=== PATIENT | female | born 1950 | race Caucasian/White ===

== ENCOUNTER 2018-02-06 03:08 | Emergency (ER) | payer MEDICARE, OTHER ==
[2018-02-06 03:42] LABS: #Basophils 0.1 thou/uL (0.0-0.2); #Eosinphils 0.3 thou/uL (0.0-0.7); #Lymphocytes 4.1 thou/uL (1.20-3.40); #Monocytes 0.8 thou/uL (0.11-0.59); #Neutrophils 7.5 thou/uL (1.40-6.50); %Basophils 0.8 % (0.0-1.0); %Eosinophils 2.1 % (0.0-10.0); %Lymphocytes 32.3 % (21.0-51.0); %Monocytes 6.1 % (0.0-10.0); %Neutrophils 58.7 % (42.0-75.0); Hemoglobin 14.8 g/dL (12.0-16.0); Mean Corpuscular HGB CONC 34.1 g/dL (32.0-36.0); Mean Corpuscular Hemoglobin 32.3 pg (27.0-31.0); Mean Corpuscular Volume 94.6 fl (81.0-99.0); Mean Platelet Volume 7.2 fL (7.4-10.4); Platelet Count 308 thou/uL (130-400); RBC Distribution Width 12.6 % (11.5-14.5); Red Blood Cell (RBC) Count 4.57 mill/uL (4.20-5.40); White Blood Cell (WBC) Count 12.7 thou/uL (4.8-10.8)
[2018-02-06 03:58] LABS: ALT (SGPT) 7 U/L (8-55); AST (SGOT) 14 U/L (5-34); Albumin 4.4 g/dL (3.4-4.8); Alkaline Phosphatase 92 U/L (40-150); Anion Gap 13 mmol/L (10-20); BUN (Urea Nitrogen) 28 mg/dL (9.8-20.1); Bilirubin, Total 0.6 mg/dL (0.2-1.2); Calc. Creatinine Clearance 0 mL/min (70-130); Calcium 9.7 mg/dL (7.8-10.44); Carbon Dioxide 25 mmol/L (23-31); Chloride 101 mmol/L (98-107); Estimated GFR-MDRD 56; Globulin 3.4 g/dL (2.4-3.5); Glucose 123 mg/dL (80-115); Protein, Total 7.8 g/dL (6.0-8.3); Sodium 136 mmol/L (136-145)
[2018-02-06 04:03] LABS: CKMB 1.7 ng/mL (0-6.6); Troponin I 0.011 ng/mL (< 0.028)
[2018-02-06] MEDS ORDERED: Potassium Chloride 20 MEQ TAB ONE (04:12)
--- NOTE | 2018-02-06 08:03 | RAD ---
PORTABLE CHEST ONE VIEW: Date: 02-06-18 Time: 2:53 a.m. History: Chest pain. FINDINGS: The heart size is borderline. There is elevation of the right hemidiaphragm. No focal areas of consol idation, pneumothorax, or pleural effusions are seen. There is no evidence of yessica pulmonary edema. IMPRESSION: No acute process. POS: SHEYLA
== END 2018-02-06 05:14 | disposition home or self-care (01) ==
LOC: ERS 03:08
DX: E87.6 Hypokalemia (principal); R00.2 Palpitations; I10 Essential (primary) hypertension; Z79.899 Other long term (current) drug therapy
CPT/HCPCS: 36415; 71045; 80053; 82553; 83735; 84443; 84484; 85025; 93005; 96360

== ENCOUNTER 2019-12-26 09:09 | Outpatient (CLI) | payer MEDICARE ==
[2019-12-26 13:24] LABS: Bilirubin Negative (Negative); Blood, Urine Negative (Negative); Clarity Clear (Clear); Glucose, Urine (Dipstick) Normal (Negative); Leukocyte 25 Leu/uL (Negative); Nitrite Negative (Negative); Protein, Urine (Dipstick) Negative (Neg-Trace); RBC/HPF 0-3 HPF (0-3); Urobilinogen Normal mg/dL (Less than 2); WBC/HPF 0-3 HPF (0-3)
[2019-12-26 13:37] LABS: Bacteria/HPF 1+ HPF (None Seen)
== END 2019-12-26 09:10 | disposition home or self-care (01) ==
LOC: LABBT 09:09
PROVIDERS: ATTEND Orthopaedic Surgery
DX: Z01.812 Encounter for preprocedural laboratory examination (principal); M16.11 Unilateral primary osteoarthritis, right hip
CPT/HCPCS: 81001; 87081; 87086

== ENCOUNTER 2019-12-26 09:15 | Inpatient (IN) | payer MEDICARE ==
[2019-12-26 09:37] VITALS: BMI 35.5
[2020-01-01 15:08] LABS: #Basophils 0.1 thou/uL (0.0-0.2); #Eosinphils 0.3 thou/uL (0.0-0.7); #Lymphocytes 2.7 thou/uL (1.20-3.40); #Monocytes 0.7 thou/uL (0.11-0.59); #Neutrophils 7.8 thou/uL (1.40-6.50); %Basophils 0.6 % (0.0-1.0); %Eosinophils 2.2 % (0.0-10.0); %Lymphocytes 23.6 % (21.0-51.0); %Monocytes 6.2 % (0.0-10.0); %Neutrophils 67.5 % (42.0-75.0); Hemoglobin 12.5 g/dL (12.0-16.0); Mean Corpuscular HGB CONC 33.9 g/dL (32.0-36.0); Mean Corpuscular Hemoglobin 32.7 pg (27.0-31.0); Mean Corpuscular Volume 96.5 fL (78.0-98.0); Mean Platelet Volume 8.2 fL (7.4-10.4); Platelet Count 312 thou/uL (130-400); RBC Distribution Width 12.3 % (11.5-14.5); White Blood Cell (WBC) Count 11.6 thou/uL (4.8-10.8)
[2020-01-01 15:15] LABS: Prothrombin Time 12.7 SEC (12.0-14.7)
[2020-01-01 15:26] LABS: Anion Gap 14 mmol/L (10-20); BUN (Urea Nitrogen) 25 mg/dL (9.8-20.1); Calc. Creatinine Clearance 0 mL/min (70-130); Calcium 9.6 mg/dL (7.8-10.44); Carbon Dioxide 26 mmol/L (23-31); Chloride 102 mmol/L (98-107); Estimated GFR-MDRD 44; Glucose 99 mg/dL (80-115); Potassium 3.5 mmol/L (3.5-5.1); Sodium 138 mmol/L (136-145)
--- NOTE | 2020-02-27 10:39 | HP ---
HISTORY OF PRESENT ILLNESS: The patient is a 69-year-old female with progressive problems with her right hip over the past year. She has had progressive hip and groin pain which radiates towards her knee, which is worse with ambulation and has persisted despite rest, restriction of activities, anti-inflammatory medications, lifestyle adjustments, and the use of hydrocodone to relieve the pain. The pain is unrelated for day-to-day activities including walking, getting dressed, and sleeping. PAST MEDICAL HISTORY: The patient does have history of degenerative arthritis of the lumbar spine, history for hypertension, and headaches. CURRENT MEDICATIONS: Include losartan, etodolac, amlodipine, bisoprolol, hydrochlorothiazide. ALLERGIES: SHE IS ALLERGIC TO SULFA. FAMILY HISTORY: Otherwise unremarkable. SOCIAL HISTORY: Otherwise unremarkable. REVIEW OF SYSTEMS: Otherwise unremarkable. PHYSICAL EXAMINATION: GENERAL: Reveals a healthy, heavy-set female. HEENT: Unremarkable. NECK: Supple. CHEST: Clear. HEART: Regular rate and rhythm. ABDOMEN: Soft, nontender. PELVIC: Deferred. RECTAL: Deferred. BREAST: Deferred.. EXTREMITIES: Pertinent findings of her right hip, right leg is 1 cm short. There is tenderness in the anterior and posterior hip. There is decreased range of motion and crepitus with range of motion. There is groin pain with internal rotation. There is a right antalgic gait and right Trendelenburg gait. NEUROVASCULAR EXAM: Intact. Pulses are 1+. Straight leg raising is negative. DIAGNOSTIC STUDIES: X-rays of the right hip reveal severe degenerative arthritis with [id number] collapse with progression from previous x-rays. IMPRESSION: 1. Degenerative joint disease, right hip. 2. History of hypertension. 3. Lumbar spondylosis. PLAN: Right total hip replacement. The nature of the surgery, length of recovery, and potential complications such as infection, loss of motion, incomplete relief, neurovascular injury, thromboembolic phenomena, leg-length discrepancy, possible transfusion, and need for revision have been discussed in detail. Job ID: [id number]
[2020-02-27 18:37] LABS: SARS-CoV-2 MS2 Positive; SARS-CoV-2 N Gene Negative; SARS-CoV-2 S Gene Negative; SARS-CoV-2 orf1ab Negative
[2020-03-02] MEDS ORDERED: PHENYLEPHRINE-NS 100 MCG/ML 10 ML SYRINGE ONE (10:01)
[2020-03-02] MEDS ORDERED: Ondansetron PF 4 MG/2 ML Vial ONE (10:01)
[2020-03-02] MEDS ORDERED: Rocuronium Bromide 10 MG/ML (10ML VIAL) ONE (10:01)
[2020-03-02] MEDS ORDERED: Glycopyrrolate 0.2 MG/ML 5 ML SYRINGE ONE (10:01)
[2020-03-02] MEDS ORDERED: Lidocaine 1.5% w/Epi 1:200K 30 ML VIAL (Epid Use) ONE (10:01)
[2020-03-02] MEDS ORDERED: EPHEDRINE 25 MG/5 ML SYRINGE ONE ×2 (10:01)
[2020-03-02] MEDS ORDERED: Lidocaine 1% PF 5 ML VIAL ONE (10:01)
[2020-03-02] MEDS ORDERED: PROPOFOL 200 MG/20 ML VIAL ONE (10:01)
[2020-03-02] MEDS ORDERED: Midazolam HCl 2 mg/2 ml Vial ONE (10:18)
[2020-03-02] MEDS ORDERED: Fentanyl 100 MCG/2 ML VIAL ONE ×3 (10:18→14:59)
[2020-03-02] MEDS ORDERED: Vancomycin 1.5 GRAM/300 ML BAG 1.5 GM/300 ML BAG ONE (10:34)
[2020-03-02] MEDS ORDERED: Tranexamic Acid 1,000 MG/10 ML VIAL ONE ×2 (10:34→14:55)
[2020-03-02] MEDS ORDERED: Sodium Chloride 0.9% 100 ML ONE (10:35)
[2020-03-02] MEDS ORDERED: diphenhydrAMINE 50 MG/ML VIAL IVP PRN (11:15)
[2020-03-02] MEDS ORDERED: Ondansetron PF 4 MG/2 ML Vial IVP PRN ×2 (11:15→14:43)
[2020-03-02] MEDS ORDERED: traMADol HCl 50 MG TAB PO PRN ×3 (11:15→14:43)
[2020-03-02] MEDS ORDERED: Bupivacaine 0.25% 10 ML VIAL EPIDURAL PRN (11:15)
[2020-03-02] MEDS ORDERED: Promethazine HCl 25 MG/ML VIAL IM PRN ×2 (11:15→14:41)
[2020-03-02] MEDS ORDERED: HYDROcodone/Acetaminophen 5/325 mg Tablet PO PRN (11:15)
[2020-03-02] MEDS ORDERED: Naloxone HCl 0.4 mg/ml Vial IV PRN (11:15)
[2020-03-02] MEDS ORDERED: Zolpidem Tartrate 5 MG TAB PO PRN ×2 (11:15→14:43)
[2020-03-02] MEDS ORDERED: Ketorolac Tromethamine 30 MG/ML VIAL IVP PRN (11:15)
[2020-03-02] MEDS ORDERED: Naloxone HCl 0.4 mg/ml Vial IVP PRN (11:15)
[2020-03-02] MEDS ORDERED: Hydrocerin (Eucerin) Cream 120 gm Jar TOP PRN (11:15)
[2020-03-02] MEDS ORDERED: diphenhydrAMINE 50 MG/ML VIAL IM PRN (11:15)
[2020-03-02] MEDS ORDERED: diphenhydrAMINE 25 MG CAP PO PRN ×2 (11:15→14:43)
[2020-03-02] MEDS ORDERED: Promethazine HCl 25 MG SUPP PR PRN (11:15)
[2020-03-02] MEDS ORDERED: Acetaminophen 325 MG TAB PO PRN ×2 (11:15→14:43)
[2020-03-02] MEDS ORDERED: Bupivacaine/Epinephrine 0.25% 30 ML VIAL ONE (12:26)
[2020-03-02] MEDS ORDERED: Sodium Chloride 0.9% 10 ML ONE (13:07)
[2020-03-02] MEDS ORDERED: Tranexamic Acid 1,000 MG in Sodium Chloride 0.9% 100 ML IVPB SCH ×2 (14:30→14:43)
[2020-03-02] MEDS ORDERED: Ondansetron HCl/PF 4 MG/2 ML Vial IVP PRN (14:41)
[2020-03-02] MEDS ORDERED: Promethazine HCl 25 MG/ML VIAL SLOW IVP PRN ×2 (14:41→14:43)
[2020-03-02] MEDS ORDERED: HYDROmorphone 2 MG/ML VIAL SLOW IVP PRN (14:41)
[2020-03-02] MEDS ORDERED: Fentanyl 100 MCG/2 ML VIAL SLOW IVP PRN ×2 (14:43)
[2020-03-02] MEDS ORDERED: Ketorolac Tromethamine 30 MG/ML VIAL IVP SCH (14:43)
[2020-03-02] MEDS ORDERED: HYDROcodone/Acetaminophen 10/325 mg Tablet PO PRN ×2 (14:43)
--- NOTE | 2020-03-02 15:11 | RAD ---
Right hip 2 views HISTORY: Hip replacement. FINDINGS: Metallic prosthesis is in place. No trino-hardware lucency. Small amount of soft tissue gas. IMPRESSION : Right hip prosthesis is in good radiographic position.
--- NOTE | 2020-03-02 17:43 | PDOC.HOSPP ---
- Subjective Encounter Date: 03/02/20 Encounter Time: 17:43 Subjective: Patient seen and examined for med mngt. No CP/SOB/Palpitations. No new complaints. - Objective Vital Signs & Weight: Vital Signs (12 hours) Temp Pulse Resp BP Pulse Ox 03/02/20 16:00 96.8 F L 53 L 16 104/60 99 Weight Weight 220 lb Result Diagrams: 03/03/20 05:58 03/03/20 05:58 EKG Reviewed by me: Yes (SR) Hospitalist ROS - Review of Systems Respiratory: denies: cough, dry, shortness of breath, hemoptysis, SOB with excertion, pleuritic pain, sputum, wheezing, other Cardiovascular: denies: chest pain, palpitations, orthopnea, paroxysmal noc. dyspnea, edema, light headedness, other - Exam General Appearance: NAD Neck: supple, no JVD Heart: RRR, no gallops Respiratory: no wheezes, no ronchi Gastrointestinal: non-tender, non-distended Extremities: no cyanosis, no clubbing Hosp A/P - Plan DVT proph w/SCDs HTN Obesity BMI 35.5 DJD CKD 3 PLAN: Cont Amlodipine Cont Bisoprolol Cont Losartan Cont HCTZ Cont Potassium supp AM labs Cont PT/OT Full code. DPOA - son
[2020-03-02] MEDS ORDERED: Potassium Chloride 10 MEQ TAB PO SCH (18:00)
[2020-03-02] MEDS: Sodium Chloride 0.9% 1,000 ML IV SCH (18:30)
[2020-03-02] MEDS: CEFAZOLIN 2 GM in Premix Bag 1 BAG IVPB SCH (18:39)
[2020-03-02] MEDS: Aspirin 81 mg Enteric Coated Tablet PO SCH (19:49)
[2020-03-02] MEDS ORDERED: Mupirocin 2% Ointment 22 GM Tube TOP SCH ×2 (21:00)
--- NOTE | 2020-03-02 22:10 | OP ---
DATE OF PROCEDURE: 03/02/2020 This is Saeed Rubi PA-C dictating a report for Cisco Tierney MD. PREOPERATIVE DIAGNOSIS: End-stage bicompartmental osteoarthritis, right hip. POSTOPERATIVE DIAGNOSIS: End-stage bicompartmental osteoarthritis, right hip. PROCEDURE PERFORMED: Press-fit right total hip arthroplasty. SPORTS AGENT: Saeed Rubi PA-C ANESTHESIA: General via endotracheal tube, augmented with indwelling epidural. COMPONENTS USED: [facility] Accolade II press-fit size 4 hip stem with press-fit 54 mm acetabular shell, 10-degree polyethylene fixed bearing insert, -5 neck length 36 mm outer diameter ceramic femoral head. ESTIMATED BLOOD LOSS: 150. FINDINGS: End-stage severe degenerative bicompartmental disease, [id number] arthrosis, periarticular osteophyte formation, large serous effusion, hypertrophic synovium, and significant flattening of the femoral head. DRAINS: None. SPECIMENS: None. COMPLICATIONS: None. COUNTS: Correct. INDICATION FOR SURGERY: Cristel is a 69-year-old female, who has had progressive right hip, groin, and thigh pain and problem with standing and walking for the last 5 to 7 years. She has failed conservative management and elected to proceed with total hip arthroplasty as definitive treatment of her pain. PROCEDURE IN DETAIL: After informed consent was obtained in the preoperative holding area, the patient was taken to the operative suite where general anesthesia was induced. The patient was then positioned in the lateral decubitus position. The hip was then prepped and draped in usual sterile fashion. The patient received preoperative antibiotics. Prior to incision, time-out was called and all members of the surgical team agreed upon site, surgeon, and patient. After this, a longitudinal incision was made directly over the trochanter, noted by palpation extending 2 fingerbreadths above and below the trochanter. The deeper subcutaneous layer was undermined with Bovie electrocautery. The iliotibial band was encountered and incised sharply and the plane below this was developed bluntly. A Charnley retractor was placed to hold this opened. The lateral aspect of the trochanter and the abductor muscles were encountered and then reflected anteriorly off the trochanter using Bovie electrocautery. Once this was completed, the anterior capsule was then encountered and identified and copious capsulotomy was carried out, exposing the femoral neck and head. Dislocation maneuver was then performed and an in situ provisional neck cut was then made using the oscillating saw. Attention was then turned to acetabular preparation. Sequential reaming was carried out up to the appropriate diameter and a trial was then malleted into place with good firm resistance and no pullout. The permanent acetabular shell was then malleted squarely into place, as was the appropriate liner. Once completed, the wound was copiously irrigated and attention was then turned to femoral preparation. Flexion and external rotation were performed of the exposed thigh and femoral elevators were then placed at the proximal aspect of the wound. Canal finder was used to establish the length of the canal and sequential reaming was carried out, followed by broaching. Once the appropriate stability was established with the trial broaches with flexion, extension and rotational stability, we did trial with neutral and 2 mm offset incremental necks. Once the appropriate size was decided upon, with good stability noted with flexion, extension, internal and external rotation and shuck being negative, we removed the femoral trial broach and malletted into place the permanent prosthesis with good firm fit, which was also stable to rotation. Again, the hip felt very stable to flexion, extension, internal and external rotation. Leg lengths appeared near anatomic clinically and we were quite happy with prosthesis placement. Copious irrigation was then carried out through the entirety of the wound. Primary closure of the abductors was accomplished with interrupted #2 Vicryl [id number] stitches and the IT band was then closed with interrupted #2 Vicryl, oversewn with a #2 running barbed Quill stitch. Subcutaneous fascia was closed with running barbed Quill stitch and a subcuticular Monocryl barbed Quill stitch was used for skin closure and augmented with skin cement. A sterile dressing was applied. The procedure was terminated without any complication. All counts were correct. The patient was awakened in the operative suite and taken to the recovery room in stable condition. Job ID: [id number]
[2020-03-02] MEDS ORDERED: Vancomycin HCl 1.5 GM in Sodium Chloride 0.9% 250 ML 300 ML IVPB SCH (23:00)
[2020-03-03] MEDS: CEFAZOLIN 2 GM in Premix Bag 1 BAG IVPB SCH (02:56)
[2020-03-03] MEDS: Sodium Chloride 0.9% 1,000 ML IV SCH ×3 (05:28→20:42)
[2020-03-03 06:07] LABS: Mean Corpuscular HGB CONC 31.9 g/dL (32.0-36.0); Mean Corpuscular Hemoglobin 31.9 pg (27.0-31.0); Mean Corpuscular Volume 99.8 fL (78.0-98.0); Mean Platelet Volume 7.8 fL (7.4-10.4); Platelet Count 302 thou/uL (130-400); RBC Distribution Width 12.4 % (11.5-14.5); Red Blood Cell (RBC) Count 3.44 mill/uL (4.20-5.40)
[2020-03-03 06:26] LABS: Anion Gap 15 mmol/L (10-20); BUN (Urea Nitrogen) 19 mg/dL (9.8-20.1); Calc. Creatinine Clearance 86 mL/min (70-130); Calcium 8.4 mg/dL (7.8-10.44); Carbon Dioxide 24 mmol/L (23-31); Chloride 99 mmol/L (98-107); Estimated GFR-MDRD 55; Glucose 114 mg/dL (80-115); Magnesium 1.9 mg/dL (1.6-2.6); Potassium 3.7 mmol/L (3.5-5.1); Sodium 134 mmol/L (136-145)
[2020-03-03] MEDS: fentaNYL Citrate/PF 500 MCG, Bupivacaine 10 ML in Sodium Chloride 0.9% 80 ML EPIDURAL SCH ×2 (06:34→21:52)
[2020-03-03] MEDS ORDERED: Potassium Gluconate [Potassium] 99 MG PO SCH (08:00)
--- NOTE | 2020-03-03 08:22 | PRG ---
DATE OF SERVICE: 03/03/2020 SUBJECTIVE: Cristel is a 69-year-old female postop day 1 from right total hip arthroplasty. She is doing very well. She had comfortable evening last night and she is working with occupational therapy this morning. She has no complaints. OBJECTIVE: VITAL SIGNS: Temperature 98.4, pulse 84, respiratory rate 17, blood pressure 102/57. GENERAL: She is alert and oriented to person, place, time, and situation. Responsive and appropriate with examiner. She is neurovascularly intact in the operative side. Good digital excursion. Good distal pulses. Good color. No malrotation or shortening. LABORATORY DATA: Hemoglobin and hematocrit 11.0 and 34.3. IMPRESSION: A 69-year-old female postop day 1 from right total hip arthroplasty , doing exceptionally well. PLAN: Continue current therapy. Initiate physical therapy. Patient does not meet inpatient criteria and therefore has been changed to observation status Job ID: [id number] MTDD
--- NOTE | 2020-03-03 08:42 | PDOC.EVN ---
Event Note - Event Note Event Note: Chart reviewed for status as Physician Advisor and I support the change to observation status and Code 44 for Medicare. Patient is s/p surgery, there is no indication/criteria for inpatient status. Addendum - 13:09 - informed by that with fentanyl epidural pt does meet inpatient criteria. Observation orders x 2 were inactivated, and new IP order placed. I support this change back to inpatient status, correcting the prior error/code 44.
[2020-03-03] MEDS ORDERED: Bisoprolol Fumarate/HCTZ 10 mg/6.25 mg Tablet PO SCH ×2 (09:00)
[2020-03-03] MEDS ORDERED: Amlodipine 5 MG TAB PO SCH (09:00)
[2020-03-03] MEDS: Aspirin 81 mg Enteric Coated Tablet PO SCH ×2 (09:02→20:42)
[2020-03-03] MEDS: Multivitamin W/ Minerals 1 TAB PO SCH (09:03)
[2020-03-03] MEDS: Senokot S 8.6-50 MG TAB PO SCH ×2 (09:03→21:51)
[2020-03-03] MEDS: Ferrous Gluconate 324 MG TAB PO SCH ×2 (09:03→16:50)
[2020-03-03] MEDS: Potassium Chloride 10 MEQ TAB PO SCH ×2 (09:06→16:50)
[2020-03-03] MEDS: Amlodipine 5 MG TAB PO SCH (09:06)
[2020-03-03] MEDS: HYDROcodone/Acetaminophen 5/325 mg Tablet PO PRN ×2 (09:24→16:50)
--- NOTE | 2020-03-03 16:12 | PDOC.HOSPP ---
- Subjective Encounter Date: 03/03/20 Encounter Time: 14:30 Subjective: Patient seen and examined for med mngt. Pain controlled. No CP/SOB. No new complaints. No overnight events - Objective Vital Signs & Weight: Vital Signs (12 hours) Temp Pulse Resp BP Pulse Ox 03/03/20 12:00 98.2 F 58 L 14 113/75 99 03/03/20 09:06 68 03/03/20 08:00 98.5 F 68 20 134/83 97 Weight Admit Weight 220 lb Weight 220 lb I&O: 03/02/20 03/03/20 03/04/20 06:59 06:59 06:59 Intake Total 1940 Output Total 850 Balance 1090 Result Diagrams: 03/03/20 05:58 03/03/20 05:58 Hospitalist ROS - Review of Systems Respiratory: denies: cough, dry, shortness of breath, hemoptysis, SOB with excertion, pleuritic pain, sputum, wheezing, other Cardiovascular: denies: chest pain, palpitations, orthopnea, paroxysmal noc. dyspnea, edema, light headedness, other - Medication Medications: Active Medications Generic Name Dose Route Start Last Admin Trade Name Freq PRN Reason Stop Dose Admin Hydrocodone Bitart/Acetaminophen 2 tab 03/02/20 11:15 03/03/20 09:24 [place] 5/325 PO 2 tab Q4H PRN Administration For Moderate Pain 4-6 Amlodipine Besylate 5 mg 03/03/20 09:00 03/03/20 09:06 Norvasc PO 5 mg DAILY ROOPA Administration Aspirin 81 mg 03/02/20 21:00 03/03/20 09:02 Ecotrin PO 81 mg BID ROOPA Administration Bisoprolol Fumarate/HCTZ 1 tab 03/03/20 09:00 03/03/20 09:06 Ziac 10-6.25 PO 1 tab DAILY ROOPA Administration Diphenhydramine HCl 25 mg 03/02/20 11:15 03/02/20 18:31 Benadryl PO 25 mg Q3H PRN Administration Itching Ferrous Gluconate 324 mg 03/03/20 08:00 03/03/20 09:03 Fergon PO 324 mg BID-WM ROOPA Administration HCTZ/Losartan Potassium 1 tab 03/03/20 09:00 03/03/20 09:05 Hyzaar 50/12.5 PO 1 tab DAILY ROOPA Administration Fentanyl Citrate 500 mcg/ 100 mls @ 6 mls/hr 03/02/20 11:15 03/03/20 06:34 Bupivacaine HCl 10 ml/ Sodium EPIDURAL 100 mls Chloride INF ROOPA Administration Sodium Chloride 1,000 mls @ 100 mls/hr 03/02/20 14:43 03/03/20 13:25 Normal Saline 0.9% IV Not Given .Q10H ROOPA Iron/Minerals/Multivitamins 1 tab 03/03/20 09:00 03/03/20 09:03 Theragran M PO 1 tab DAILY ROOPA Administration Ketorolac Tromethamine 15 mg 03/02/20 11:15 03/03/20 06:33 Toradol IVP 03/05/20 11:16 15 mg Q6H PRN Administration Moderate Pain (4-6) Potassium Chloride 10 meq 03/03/20 08:00 03/03/20 09:06 Klor-Con 10 PO 10 meq BID-WM ROOPA Administration Senna/Docusate Sodium 2 tab 03/03/20 09:00 03/03/20 09:03 Senokot S PO 2 tab BID ROOPA Administration - Exam General Appearance: NAD Heart: RRR, no gallops Respiratory: no wheezes, no ronchi Gastrointestinal: soft, non-tender, normal bowel sounds Extremities: no cyanosis Hosp A/P - Plan DVT proph w/SCDs HTN Obesity BMI 35.5 DJD CKD 3 Hyponatremia PLAN: Cont Amlodipine/Bisoprolol/Losartan with holding parameters Hold HCTZ Cont other meds as above Cont PT/OT
[2020-03-04 05:37] LABS: Hemoglobin 10.1 g/dL (12.0-16.0); Mean Corpuscular Hemoglobin 32.7 pg (27.0-31.0); Mean Corpuscular Volume 99.1 fL (78.0-98.0); Mean Platelet Volume 7.6 fL (7.4-10.4); Platelet Count 236 thou/uL (130-400); RBC Distribution Width 12.2 % (11.5-14.5); Red Blood Cell (RBC) Count 3.08 mill/uL (4.20-5.40); White Blood Cell (WBC) Count 11.6 thou/uL (4.8-10.8)
[2020-03-04] MEDS: Sodium Chloride 0.9% 1,000 ML IV SCH ×2 (08:13→10:53)
[2020-03-04] MEDS: Ferrous Gluconate 324 MG TAB PO SCH (08:18)
[2020-03-04] MEDS: Amlodipine 5 MG TAB PO SCH (08:18)
[2020-03-04] MEDS: Senokot S 8.6-50 MG TAB PO SCH (08:18)
[2020-03-04] MEDS: Aspirin 81 mg Enteric Coated Tablet PO SCH (08:18)
[2020-03-04] MEDS: Multivitamin W/ Minerals 1 TAB PO SCH (08:18)
[2020-03-04] MEDS: Potassium Chloride 10 MEQ TAB PO SCH (08:18)
[2020-03-04] MEDS: HYDROcodone/Acetaminophen 5/325 mg Tablet PO PRN (08:22)
[2020-03-04] MEDS ORDERED: Bisoprolol Fumarate 5 MG TAB PO SCH (09:00)
[2020-03-04] MEDS ORDERED: Losartan 25 MG TAB PO SCH (09:00)
[2020-03-04 14:34] VITALS: BP 112/70; TEMP 98.1
== END 2020-03-04 14:38 | disposition home or self-care (01) | DRG 470 ==
LOC: SURG A 03-02 09:12 → INTOOBSV 03-02 09:12 → OBSVTOIN 03-02 09:12 → SURG B 03-02 16:27
PROVIDERS: ADMIT Orthopaedic Surgery; ATTEND Orthopaedic Surgery
PROC: 0SR904A Replacement of Right Hip Joint with Ceramic on Polyethylene Synthetic Substitute, Uncemented, Open Approach (ICD-10-PCS; principal; 2020-03-02)
DX: M16.11 Unilateral primary osteoarthritis, right hip (principal); E87.1 Hypo-osmolality and hyponatremia; M47.816 Spondylosis without myelopathy or radiculopathy, lumbar region; E66.9 Obesity, unspecified; N18.3 Chronic kidney disease, stage 3 (moderate); I12.9 Hypertensive chronic kidney disease with stage 1 through stage 4 chronic kidney disease, or unspecified chronic kidney disease; Z11.59 Encounter for screening for other viral diseases; Z79.899 Other long term (current) drug therapy; Z68.35 Body mass index [BMI] 35.0-35.9, adult; Z88.2 Allergy status to sulfonamides
CPT/HCPCS: 36415; 80048; 83735; 85025; 85027; 85610; 86850; 86900; 86901; 87081; 87635; J0690; J1885; J2001; J2250; J2405; J2704; J3010; J3370; J3490; J7050; Q0163; U0003

== ENCOUNTER 2020-01-01 13:34 | Outpatient (CLI) | payer MEDICARE | END 2020-01-01 13:35 | disposition home or self-care (01) | LOC: LABBT 13:34 | PROVIDERS: ATTEND Orthopaedic Surgery | DX: Z01.810 Encounter for preprocedural cardiovascular examination (principal); M16.11 Unilateral primary osteoarthritis, right hip | CPT/HCPCS: 93005; 93010 ==

== ENCOUNTER 2020-02-27 06:10 | Outpatient (CLI) | payer MEDICARE, OTHER ==
[2020-02-27 13:15] LABS: #Eosinphils 0.1 thou/uL (0.0-0.7); #Lymphocytes 1.8 thou/uL (1.20-3.40); #Monocytes 0.6 thou/uL (0.11-0.59); #Neutrophils 8.5 thou/uL (1.40-6.50); %Basophils 0.4 % (0.0-1.0); %Lymphocytes 16.5 % (21.0-51.0); %Monocytes 5.4 % (0.0-10.0); %Neutrophils 76.7 % (42.0-75.0); Hemoglobin 12.8 g/dL (12.0-16.0); Mean Corpuscular HGB CONC 32.2 g/dL (32.0-36.0); Mean Corpuscular Hemoglobin 31.8 pg (27.0-31.0); Mean Corpuscular Volume 98.7 fL (78.0-98.0); Platelet Count 326 thou/uL (130-400); RBC Distribution Width 12.4 % (11.5-14.5); Red Blood Cell (RBC) Count 4.02 mill/uL (4.20-5.40)
[2020-02-27 13:19] LABS: Prothrombin Time 13.2 sec (12.0-14.7)
[2020-02-27 13:36] LABS: Anion Gap 14 mmol/L (10-20); BUN (Urea Nitrogen) 27 mg/dL (9.8-20.1); Calc. Creatinine Clearance 0 mL/min (70-130); Calcium 10.1 mg/dL (7.8-10.44); Carbon Dioxide 27 mmol/L (23-31); Chloride 101 mmol/L (98-107); Estimated GFR-MDRD 53; Glucose 108 mg/dL (80-115); Potassium 4.1 mmol/L (3.5-5.1); Sodium 138 mmol/L (136-145)
--- NOTE | 2020-02-27 17:39 | EKG ---
Test Reason : Blood Pressure : / mmHG Vent. Rate : 056 BPM Atrial Rate : 056 BPM P-R Int : 166 ms QRS Dur : 086 ms QT Int : 432 ms P-R-T Axes : 029 -06 050 degrees QTc Int : 416 ms Sinus bradycardia with sinus arrhythmia Poor R wave progression Abnormal ECG When compared with ECG of 01-JAN-2020 13:52, T wave inversion no longer evident in Inferior leads Nonspecific T wave abnormality, improved in Lateral leads Confirmed by LUIS MURPHY, SChristiano ([id number]) on 02/27/2020 5:39:13 PM Referred By: KAREN Confirmed By:DR. Brisa SMITH MD
[2020-02-27 18:59] LABS: Bacteria/HPF None Seen HPF (None Seen); Bilirubin Negative (Negative); Blood, Urine Negative (Negative); Clarity Clear (Clear); Glucose, Urine (Dipstick) Normal (Negative); Leukocyte Negative Leu/uL (Negative); Nitrite Negative (Negative); Protein, Urine (Dipstick) Negative (Neg-Trace); RBC/HPF 0-3 HPF (0-3); Squamous Epithelial 0-3 HPF (0-3); Urobilinogen Normal mg/dL (Less than 2); WBC/HPF 0-3 HPF (0-3)
== END 2020-02-27 06:11 | disposition home or self-care (01) ==
LOC: LABBT 06:10
PROVIDERS: ATTEND Orthopaedic Surgery
DX: Z01.818 Encounter for other preprocedural examination (principal); Z11.59 Encounter for screening for other viral diseases; M16.11 Unilateral primary osteoarthritis, right hip
CPT/HCPCS: 80048; 81001; 85025; 85610; 87086; 93005; 93010

== ENCOUNTER 2020-07-01 15:02 | Emergency (ER) | payer MEDICARE ==
[2020-07-01] MEDS ORDERED: Iopamidol-370 76% 500 ML 1 ML ONE (15:29)
[2020-07-01 16:33] LABS: #Eosinphils 0.1 thou/uL (0.0-0.7); #Monocytes 0.9 thou/uL (0.11-0.59); %Basophils 0.4 % (0.0-1.0); %Eosinophils 0.5 % (0.0-10.0); %Lymphocytes 17.7 % (21.0-51.0); %Monocytes 8.1 % (0.0-10.0); %Neutrophils 73.2 % (42.0-75.0); Hemoglobin 14.4 g/dL (12.0-16.0); Mean Corpuscular HGB CONC 34.1 g/dL (32.0-36.0); Mean Corpuscular Hemoglobin 31.5 pg (27.0-31.0); Mean Corpuscular Volume 92.5 fL (78.0-98.0); Platelet Count 313 thou/uL (130-400); RBC Distribution Width 12.8 % (11.5-14.5); Red Blood Cell (RBC) Count 4.56 mill/uL (4.20-5.40)
[2020-07-01 16:45] LABS: ALT (SGPT) Less than 7 U/L (8-55); AST (SGOT) 11 U/L (5-34); Albumin 4.2 g/dL (3.4-4.8); Alkaline Phosphatase 129 U/L (40-110); Anion Gap 15 mmol/L (10-20); BUN (Urea Nitrogen) 30 mg/dL (9.8-20.1); Bilirubin, Total 0.5 mg/dL (0.2-1.2); Calc. Creatinine Clearance 0 mL/min (70-130); Calcium 9.5 mg/dL (7.8-10.44); Carbon Dioxide 25 mmol/L (23-31); Chloride 101 mmol/L (98-107); Estimated GFR-MDRD 42; Globulin 3.6 g/dL (2.4-3.5); Glucose 130 mg/dL (80-115); Lipase 23 U/L (8-78); Potassium 3.8 mmol/L (3.5-5.1); Protein, Total 7.8 g/dL (6.0-8.3); Sodium 137 mmol/L (136-145)
--- NOTE | 2020-07-01 18:12 | CT ---
CT of theabdomen and pelvis: 07/01/2020 COMPARISON:None available HISTORY:Abdominal pain, intermittent diarrhea TECHNIQUE: Serial axial CT imaging at5 mm intervals from thelung bases through the pubic symphysis wi th IV contrast. Coronal and sagittal reformatted imaging obtained Findings:The imaged lung bases are unremarkable. No free intraperitoneal air or fluid is seen. The liver, gallbladder, and spleen demonstrate no acute findings. 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 The pancreas, adrenal glands, and kidneys demonstrate no acute findings. Multiple small parapelvic cysts are noted bilaterally. Streak artifact from a right hip arthroplasty limits assessment of the pelvis. Evaluation of the damon l is limited without oral contrast media. Diverticulosis of the descending colon and sigmoid colon noted with no evidence for diverticulitis. No evidence for bowel obstruction or inflammatory change. The appendix appears unremarkable. Scattered atherosclerotic calcification of the abdominal aorta and its branches noted. No abdominal or pelvic lymphadenopathy. No acute osseous abnormality. There is prominent multilevel l ower lumbar spine degenerative change with disc space narrowing, vacuum disc formation, and multilevel bilateral facet hypertrophy. Impression:Numerous incidental/chronic findings as above. No acute findings are seen.
--- NOTE | 2020-07-04 13:41 | EKG ---
Test Reason : ABD Blood Pressure : / mmHG Vent. Rate : 054 BPM Atrial Rate : 054 BPM P-R Int : 178 ms QRS Dur : 088 ms QT Int : 474 ms P-R-T Axes : -06 -26 -18 degrees QTc Int : 449 ms Sinus bradycardia Moderate voltage criteria for LVH, may be normal variant Borderline ECG Confirmed by PHONG JACOME DO ([id number]), business editor PENG ORNELAS ([id number]) on 07/04/2020 1:40:54 PM Referred By: Confirmed By:PHONG JACOME DO
== END 2020-07-01 19:04 | disposition home or self-care (01) ==
LOC: ERS 15:02
DX: R10.9 Unspecified abdominal pain (principal); R19.7 Diarrhea, unspecified; I10 Essential (primary) hypertension
CPT/HCPCS: 74177; 80053; 83690; 85025; 93005; Q9967

== ENCOUNTER 2020-07-04 12:32 | Emergency (ER) | payer MEDICARE ==
[2020-07-04 13:06] LABS: #Eosinphils 0.1 thou/uL (0.0-0.7); #Lymphocytes 2.1 thou/uL (1.20-3.40); #Monocytes 0.6 thou/uL (0.11-0.59); #Neutrophils 7.3 thou/uL (1.40-6.50); %Basophils 0.3 % (0.0-1.0); %Eosinophils 0.9 % (0.0-10.0); %Lymphocytes 20.7 % (21.0-51.0); %Monocytes 5.6 % (0.0-10.0); %Neutrophils 72.6 % (42.0-75.0); Hemoglobin 14.9 g/dL (12.0-16.0); Mean Corpuscular HGB CONC 32.7 g/dL (32.0-36.0); Mean Corpuscular Hemoglobin 30.9 pg (27.0-31.0); Mean Corpuscular Volume 94.5 fL (78.0-98.0); Platelet Count 322 thou/uL (130-400); Red Blood Cell (RBC) Count 4.82 mill/uL (4.20-5.40); White Blood Cell (WBC) Count 10.1 thou/uL (4.8-10.8)
[2020-07-04 13:25] LABS: ALT (SGPT) 7 U/L (8-55); AST (SGOT) 12 U/L (5-34); Albumin 4.2 g/dL (3.4-4.8); Alkaline Phosphatase 129 U/L (40-110); Anion Gap 16 mmol/L (10-20); BUN (Urea Nitrogen) 26 mg/dL (9.8-20.1); Bilirubin, Total 0.7 mg/dL (0.2-1.2); Calc. Creatinine Clearance 0 mL/min (70-130); Calcium 9.6 mg/dL (7.8-10.44); Carbon Dioxide 24 mmol/L (23-31); Chloride 100 mmol/L (98-107); Estimated GFR-MDRD 42; Globulin 3.7 g/dL (2.4-3.5); Glucose 125 mg/dL (80-115); Lipase 21 U/L (8-78); Potassium 3.7 mmol/L (3.5-5.1); Protein, Total 7.9 g/dL (6.0-8.3); Sodium 136 mmol/L (136-145)
[2020-07-04 13:34] LABS: Bilirubin Moderate (Negative); Blood, Urine Trace (Negative); Glucose, Urine (Dipstick) Negative (Negative); Ketone, Urine Trace mg/dL (Negative); Leukocyte Trace (Negative); Nitrite Negative (Negative); Protein, Urine (Dipstick) 100 mg/dL (Neg-Trace); Specific Gravity, Urine 1.025 (1.005-1.030); Urobilinogen 0.2 mg/dL (Less than 2)
[2020-07-04 13:35] LABS: Clarity Hazy (Clear)
[2020-07-04 13:44] LABS: Bacteria/HPF 1+ HPF (None Seen); RBC/HPF 0-3 HPF (0-3); Squamous Epithelial 21-50 HPF (0-3)
[2020-07-04 13:45] LABS: Mucous/LPF 2+ LPF (<2+)
== END 2020-07-04 16:45 | disposition home or self-care (01) ==
LOC: ERS 12:32
DX: N39.0 Urinary tract infection, site not specified (principal); I10 Essential (primary) hypertension
CPT/HCPCS: 36415; 80053; 81003; 81015; 83690; 85025; 87086; 99283

== ENCOUNTER 2020-07-07 14:22 | Emergency (ER) | payer MEDICARE ==
[2020-07-07 15:40] LABS: #Basophils 0.1 thou/uL (0.0-0.2); #Eosinphils 0.1 thou/uL (0.0-0.7); #Lymphocytes 2.3 thou/uL (1.20-3.40); #Monocytes 0.6 thou/uL (0.11-0.59); #Neutrophils 7.3 thou/uL (1.40-6.50); %Basophils 0.5 % (0.0-1.0); %Lymphocytes 22.1 % (21.0-51.0); %Monocytes 5.8 % (0.0-10.0); %Neutrophils 70.5 % (42.0-75.0); Hemoglobin 14.8 g/dL (12.0-16.0); Mean Corpuscular HGB CONC 32.8 g/dL (32.0-36.0); Mean Corpuscular Hemoglobin 30.7 pg (27.0-31.0); Mean Corpuscular Volume 93.7 fL (78.0-98.0); Platelet Count 310 thou/uL (130-400); Red Blood Cell (RBC) Count 4.82 mill/uL (4.20-5.40); White Blood Cell (WBC) Count 10.3 thou/uL (4.8-10.8)
[2020-07-07 16:02] LABS: ALT (SGPT) 7 U/L (8-55); AST (SGOT) 11 U/L (5-34); Albumin 4.3 g/dL (3.4-4.8); Alkaline Phosphatase 131 U/L (40-110); Anion Gap 16 mmol/L (10-20); BUN (Urea Nitrogen) 21 mg/dL (9.8-20.1); Bilirubin, Total 0.6 mg/dL (0.2-1.2); Calc. Creatinine Clearance 0 mL/min (70-130); Calcium 9.8 mg/dL (7.8-10.44); Carbon Dioxide 27 mmol/L (23-31); Chloride 98 mmol/L (98-107); Estimated GFR-MDRD 44; Globulin 3.6 g/dL (2.4-3.5); Glucose 126 mg/dL (80-115); Potassium 3.7 mmol/L (3.5-5.1); Protein, Total 7.9 g/dL (6.0-8.3); Sodium 137 mmol/L (136-145)
[2020-07-07 18:05] LABS: Bilirubin Negative (Negative); Blood, Urine Negative (Negative); Clarity Clear (Clear); Glucose, Urine (Dipstick) Normal (Negative); Ketone, Urine Negative (Negative); Leukocyte Negative Leu/uL (Negative); Nitrite Negative (Negative); Protein, Urine (Dipstick) 10 mg/dL (Neg-Trace); Specific Gravity, Urine 1.018 (1.002-1.036); Urobilinogen Normal mg/dL (Less than 2)
== END 2020-07-07 19:59 | disposition home or self-care (01) ==
LOC: ERS 14:22
DX: R63.0 Anorexia (principal); R10.9 Unspecified abdominal pain; I10 Essential (primary) hypertension
CPT/HCPCS: 36415; 80053; 81003; 85025; 87086; 99284

== ENCOUNTER 2020-07-08 08:06 | Emergency (ER) | payer MEDICARE ==
[2020-07-08 09:43] LABS: #Basophils 0.1 thou/uL (0.0-0.2); #Eosinphils 0.1 thou/uL (0.0-0.7); #Lymphocytes 2.5 thou/uL (1.20-3.40); #Monocytes 0.9 thou/uL (0.11-0.59); #Neutrophils 8.6 thou/uL (1.40-6.50); %Basophils 0.6 % (0.0-1.0); %Eosinophils 1.1 % (0.0-10.0); %Lymphocytes 20.5 % (21.0-51.0); %Monocytes 7.2 % (0.0-10.0); %Neutrophils 70.5 % (42.0-75.0); Mean Corpuscular HGB CONC 32.9 g/dL (32.0-36.0); Mean Corpuscular Hemoglobin 30.7 pg (27.0-31.0); Mean Corpuscular Volume 93.5 fL (78.0-98.0); Platelet Count 327 thou/uL (130-400); RBC Distribution Width 13.1 % (11.5-14.5); Red Blood Cell (RBC) Count 4.89 mill/uL (4.20-5.40); White Blood Cell (WBC) Count 12.2 thou/uL (4.8-10.8)
[2020-07-08 10:03] LABS: ALT (SGPT) Less than 7 U/L (8-55); AST (SGOT) 11 U/L (5-34); Albumin 4.3 g/dL (3.4-4.8); Alkaline Phosphatase 133 U/L (40-110); Anion Gap 16 mmol/L (10-20); BUN (Urea Nitrogen) 27 mg/dL (9.8-20.1); Bilirubin, Total 0.8 mg/dL (0.2-1.2); Calc. Creatinine Clearance 0 mL/min (70-130); Calcium 9.9 mg/dL (7.8-10.44); Carbon Dioxide 27 mmol/L (23-31); Chloride 97 mmol/L (98-107); Estimated GFR-MDRD 34; Globulin 3.5 g/dL (2.4-3.5); Glucose 114 mg/dL (80-115); Lipase 20 U/L (8-78); Potassium 3.8 mmol/L (3.5-5.1); Protein, Total 7.8 g/dL (6.0-8.3); Sodium 136 mmol/L (136-145)
== END 2020-07-08 10:57 | disposition home or self-care (01) ==
LOC: ERS 08:06
DX: K64.9 Unspecified hemorrhoids (principal); R10.84 Generalized abdominal pain; I10 Essential (primary) hypertension
CPT/HCPCS: 36415; 80053; 83690; 85025; 99284

== ENCOUNTER 2021-02-08 14:49 | Emergency (ER) | payer MEDICARE ==
[2021-02-08 15:31] LABS: #Basophils 0.1 thou/uL (0.0-0.2); #Lymphocytes 1.7 thou/uL (1.20-3.40); #Monocytes 0.5 thou/uL (0.11-0.59); #Neutrophils 7.9 thou/uL (1.40-6.50); %Basophils 0.8 % (0.0-1.0); %Eosinophils 0.5 % (0.0-10.0); %Lymphocytes 16.5 % (21.0-51.0); %Monocytes 4.7 % (0.0-10.0); %Neutrophils 77.5 % (42.0-75.0); Hemoglobin 14.5 g/dL (12.0-16.0); Mean Corpuscular HGB CONC 33.7 g/dL (32.0-36.0); Mean Corpuscular Hemoglobin 32.9 pg (27.0-31.0); Mean Corpuscular Volume 97.6 fL (78.0-98.0); Mean Platelet Volume 7.5 fL (7.4-10.4); Platelet Count 324 thou/uL (130-400); RBC Distribution Width 12.2 % (11.5-14.5); White Blood Cell (WBC) Count 10.2 thou/uL (4.8-10.8)
[2021-02-08 15:56] LABS: ALT (SGPT) Less than 7 U/L (8-55); AST (SGOT) 10 U/L (5-34); Albumin 4.1 g/dL (3.4-4.8); Alkaline Phosphatase 109 U/L (40-110); Anion Gap 16 mmol/L (10-20); BUN (Urea Nitrogen) 21 mg/dL (9.8-20.1); Bilirubin, Total 0.7 mg/dL (0.2-1.2); Calc. Creatinine Clearance 0 mL/min (70-130); Calcium 9.7 mg/dL (7.8-10.44); Carbon Dioxide 24 mmol/L (23-31); Chloride 104 mmol/L (98-107); Globulin 3.5 g/dL (2.4-3.5); Glucose 133 mg/dL (80-115); Lipase 12 U/L (8-78); Potassium 3.6 mmol/L (3.5-5.1); Protein, Total 7.6 g/dL (5.8-8.1); Sodium 140 mmol/L (136-145)
[2021-02-08 16:19] LABS: Bilirubin Negative (Negative); Blood, Urine 1+ (Negative); Clarity Turbid (Clear); Glucose, Urine (Dipstick) Normal (Negative); Ketone, Urine Negative (Negative); Leukocyte 75 Leu/uL (Negative); Nitrite Negative (Negative); Protein, Urine (Dipstick) 10 mg/dL (Neg-Trace); RBC/HPF 0-3 HPF (0-3); Specific Gravity, Urine 1.025 (1.002-1.036); Urobilinogen Normal mg/dL (Less than 2); pH, Urine 5.5 (5.0-9.0)
[2021-02-08 16:20] LABS: Bacteria/HPF 1+ HPF (None Seen)
== END 2021-02-08 16:25 | disposition home or self-care (01) ==
LOC: ERS 14:49
DX: R00.2 Palpitations (principal); I10 Essential (primary) hypertension
CPT/HCPCS: 36415; 71045; 80053; 81003; 81015; 82550; 83690; 84443; 84484; 85025; 85379; 93005; 94760